=== PATIENT | female | born 1995 | race Caucasian/White ===

== ENCOUNTER 2017-10-17 13:32 | Outpatient (CLI) | payer OTHER ==
[~2017-10-17] VITALS: Ht 162.6 cm; Wt 47.0 kg
[2017-10-17 13:59] VITALS: BP 103/55; PULSE 82; TEMP 97.9
== END 2017-10-17 14:36 | disposition home or self-care (01) ==
LOC: EUO 13:32
DX: J45.50 Severe persistent asthma, uncomplicated (principal); Z79.899 Other long term (current) drug therapy
CPT/HCPCS: J2357

== ENCOUNTER 2017-11-13 15:00 | Outpatient (CLI) | payer OTHER ==
[2017-11-13 15:22] VITALS: BP 119/56; PULSE 100; TEMP 98.2
== END 2017-11-13 16:10 | disposition home or self-care (01) ==
LOC: EUO 15:00
DX: J45.50 Severe persistent asthma, uncomplicated (principal); Z79.899 Other long term (current) drug therapy
CPT/HCPCS: J2357

== ENCOUNTER 2017-12-12 14:04 | Outpatient (CLI) | payer OTHER ==
[~2017-12-12] VITALS: Ht 157.5 cm; Wt 47.8 kg
[2017-12-12] MEDS ORDERED: PRENATAL MVI PO (14:40)
[2017-12-12] MEDS ORDERED: SINGULAIR 110 MG/TAB PO (14:41)
[2017-12-12] MEDS ORDERED: RT SPIRIVA18 MCG IH (14:41)
[2017-12-12] MEDS ORDERED: RT ADVAIR 528 DISKUS IH (14:41)
[2017-12-12] MEDS ORDERED: QVAR REDIHALE10.6 GM IH (14:42)
[2017-12-12] MEDS ORDERED: ZYRTEC 10MG10 MG PO (14:42)
[2017-12-12] MEDS ORDERED: RT ALBUTER2.5 MG/0.5 IH (14:43)
[2017-12-12] MEDS ORDERED: PROAIR HFA0.09 MG/AC IH (14:43)
[2017-12-12 14:45] VITALS: BP 106/71; PULSE 106; TEMP 98.5
== END 2017-12-12 15:10 | disposition home or self-care (01) ==
LOC: EUO 14:04
DX: J45.50 Severe persistent asthma, uncomplicated (principal); Z79.899 Other long term (current) drug therapy
CPT/HCPCS: J2357

== ENCOUNTER 2018-01-10 15:03 | Outpatient (CLI) | payer OTHER ==
[~2018-01-10] VITALS: Ht 157.5 cm; Wt 46.0 kg
[~2018-01-10 15:03] MED LIST: PRENATAL MVI PO; PROAIR HFA0.09 MG/AC IH; QVAR REDIHALE10.6 GM IH; RT ADVAIR 528 DISKUS IH; RT ALBUTER2.5 MG/0.5 IH; RT SPIRIVA18 MCG IH; SINGULAIR 110 MG/TAB PO; ZYRTEC 10MG10 MG PO
[2018-01-10 16:05] VITALS: BP 98/62; PULSE 97; TEMP 98.1
== END 2018-01-10 16:06 | disposition home or self-care (01) ==
LOC: EUO 15:03
DX: J45.50 Severe persistent asthma, uncomplicated (principal); Z79.899 Other long term (current) drug therapy
CPT/HCPCS: J2357

== ENCOUNTER 2018-02-07 15:04 | Outpatient (CLI) | payer OTHER ==
[~2018-02-07] VITALS: Ht 157.5 cm; Wt 48.0 kg
[2018-02-07 15:37] VITALS: BP 110/62; PULSE 62; TEMP 98
== END 2018-02-07 16:21 | disposition home or self-care (01) ==
LOC: EUO 15:04
DX: J45.50 Severe persistent asthma, uncomplicated (principal); Z79.899 Other long term (current) drug therapy
CPT/HCPCS: J2357

== ENCOUNTER 2018-03-07 15:05 | Outpatient (CLI) | payer OTHER ==
[~2018-03-07] VITALS: Ht 157.5 cm; Wt 47.0 kg
[2018-03-07] MEDS ORDERED: PREDNISONE20 MG PO (15:28)
[2018-03-07] MEDS ORDERED: ZITHROMAX 250M250 MG PO (15:28)
[2018-03-07 15:29] VITALS: BP 124/62; PULSE 112; TEMP 98
== END 2018-03-07 16:22 | disposition home or self-care (01) ==
LOC: EUO 15:05
DX: J45.50 Severe persistent asthma, uncomplicated (principal); Z79.899 Other long term (current) drug therapy
CPT/HCPCS: J2357

== ENCOUNTER 2018-04-04 14:10 | Outpatient (CLI) | payer OTHER ==
[~2018-04-04] VITALS: Ht 157.5 cm; Wt 46.3 kg
[~2018-04-04 14:10] MED LIST changes: +PREDNISONE20 MG PO; +ZITHROMAX 250M250 MG PO
[2018-04-04 14:44] VITALS: BP 118/60; PULSE 73; TEMP 97
== END 2018-04-04 15:09 | disposition home or self-care (01) ==
LOC: EUO 14:10
DX: J45.50 Severe persistent asthma, uncomplicated (principal); Z79.899 Other long term (current) drug therapy
CPT/HCPCS: J2357

== ENCOUNTER 2018-05-02 13:54 | Outpatient (CLI) | payer OTHER ==
[~2018-05-02] VITALS: Ht 157.5 cm; Wt 50.3 kg
[2018-05-02] MEDS ORDERED: MONONESSA 35 MC1 TA1 PO (14:13)
[2018-05-02 14:58] VITALS: BP 104/53; PULSE 76; TEMP 98
== END 2018-05-02 15:00 | disposition home or self-care (01) ==
LOC: EUO 13:54
DX: J45.50 Severe persistent asthma, uncomplicated (principal); Z79.899 Other long term (current) drug therapy
CPT/HCPCS: J2357

== ENCOUNTER 2018-05-30 14:13 | Outpatient (CLI) | payer OTHER ==
[~2018-05-30 14:13] MED LIST changes: +MONONESSA 35 MC1 TA1 PO
[2018-05-30 15:00] VITALS: BP 102/58; PULSE 69; TEMP 97.8
== END 2018-05-30 15:30 | disposition home or self-care (01) ==
LOC: EUO 14:13
DX: J45.50 Severe persistent asthma, uncomplicated (principal); Z79.899 Other long term (current) drug therapy
CPT/HCPCS: J2357

== ENCOUNTER 2018-06-27 14:07 | Outpatient (CLI) | payer OTHER ==
[~2018-06-27] VITALS: Ht 157.5 cm; Wt 53.0 kg
[2018-06-27 14:26] VITALS: BP 104/64; PULSE 81; TEMP 98.2
== END 2018-06-27 15:15 | disposition home health service (06) ==
LOC: EUO 14:07
DX: J45.50 Severe persistent asthma, uncomplicated (principal); Z79.899 Other long term (current) drug therapy
CPT/HCPCS: J2357

== ENCOUNTER 2018-07-25 13:03 | Outpatient (CLI) | payer OTHER ==
[~2018-07-25] VITALS: Ht 157.5 cm; Wt 52.0 kg
[2018-07-25 13:16] VITALS: BP 123/64; PULSE 107; TEMP 97.9
[2018-07-25] MEDS ORDERED: ALLEGRA 60MG TA60 MG PO (13:16)
== END 2018-07-25 14:00 | disposition home or self-care (01) ==
LOC: EUO 13:03
DX: J45.50 Severe persistent asthma, uncomplicated (principal); Z79.899 Other long term (current) drug therapy
CPT/HCPCS: J2357